=== PATIENT | female | born 1935 | race Caucasian/White ===

== ENCOUNTER 2017-12-31 11:26 | Observation (INO) | payer MEDICARE ==
[2017-12-27 14:49] VITALS: BP 125/52
[2017-12-27 15:02] LABS: BASOPHILS % (AUTO) 1.2 % (0.0-5.0); HEMATOCRIT 31.3 % (36-48); LYMPHOCYTES % (AUTO) 17.2 % (21.0-51.0); MEAN CORPUSCULAR HEMOGLOBIN 29.5 pg (27.0-33.0); MEAN CORPUSCULAR HGB CONC 33.3 g/dL (32.0-36.0); MEAN CORPUSCULAR VOLUME 88.6 fL (79-99); MONOCYTES % (AUTO) 8.6 % (3.0-13.0); PLATELET COUNT (AUTO) 240 K/uL (130-400); RED BLOOD CELL COUNT(AUTO) 3.54 MIL/uL (4.00-5.50); RED CELL DISTRIBUTION WIDTH 15.1 % (11.0-15.5); WHITE BLOOD COUNT (AUTO) 6.9 K/uL (4.8-10.8)
[2017-12-27 15:03] LABS: APPEARANCE,URINE Clear (CLEAR); BILIRUBIN,URINE Negative (NEGATIVE); COLOR,URINE Yellow (YELLOW); GLUCOSE, URINE (UA) Negative (NEGATIVE); KETONES,URINE Negative (NEGATIVE); LEUKOCYTE ESTERASE ,URINE Negative (NEGATIVE); NITRATE,URINE Negative (NEGATIVE); OCCULT BLOOD,URINE Negative (NEGATIVE); PROTEIN,URINE Negative (NEGATIVE)
[2017-12-27 15:10] LABS: CREATININE 1.6 mg/dL (0.5-1.5); POTASSIUM 4.8 mmol/L (3.5-5.1)
[2017-12-27 15:14] LABS: INR 2.21 (0.85-1.15); PARTIAL THROMBOPLASTIN TIME 35.5 SEC (26.3-35.5); PROTHROMBIN TIME 22.8 SEC (9.6-11.6)
[2017-12-31] VITALS (16 sets, daily range): BP systolic 116–173; BP diastolic 47–82
[~2017-12-31] VITALS: Ht 161.2 cm; Wt 67.5 kg
[~2017-12-31 11:26] MED LIST: AEC81 PO; AMIO200T2 PO; ATOR10TA69 PO; CALC-866 PO; CARV6.25 PO; CETI10TA57 PO; GARL1000 PO; LEVO50TA11 PO; LEVO75TA10 PO; LISI30TA4 PO; MAGN250T2 PO; SODIUM CHLORIDE 0.9% 1000ML 1,000 ML IV SCH; SODIUM CHLORIDE 0.9% 500ML 500 ML IV SCH; WARF1TAB83 PO; WARFARIN PO; [UNRECOGNIZED DRUG - OTHER] PO
[2017-12-31 12:14] LABS: CREATININE 1.4 mg/dL (0.5-1.5); POTASSIUM 4.7 mmol/L (3.5-5.1)
[2017-12-31 12:16] LABS: INR 1.26 (0.85-1.15); PARTIAL THROMBOPLASTIN TIME 27.9 SEC (26.3-35.5); PROTHROMBIN TIME 13.2 SEC (9.6-11.6)
[2017-12-31] MEDS ORDERED: LIDOCAINE HCL 2% 20ML ONE (13:44)
[2017-12-31] MEDS ORDERED: ISOVUE-300 100 ML VIAL IV ONE (13:44)
[2017-12-31] MEDS ORDERED: HEPARIN SODIUM 1000UNIT/ML 10ML VIAL ONE (13:44)
[2017-12-31] MEDS ORDERED: NITROGLYCERIN 5 MG/ML 10 ML VIAL IV ONE (13:44)
[2017-12-31] MEDS ORDERED: FENTANYL CITRATE PF 50 MCG/1 ML 2ML VIAL ONE (14:22)
[2017-12-31] MEDS ORDERED: MIDAZOLAM HCL 1 MG/ML 2ML VIAL ONE (14:22)
[2017-12-31] MEDS ORDERED: SODIUM CHLORIDE 0.9% 1000ML 1,000 ML IV SCH (15:05)
[2017-12-31] MEDS ORDERED: PROTAMINE SULFATE 10 MG/ML 25ML VIAL IV ONE (15:09)
[2017-12-31] MEDS ORDERED: ASPIRIN 81MG TAB.CHEW ONE (15:11)
[2017-12-31] MEDS ORDERED: CLOPIDOGREL BISULFATE 300 MG TAB ONE (15:11)
[2017-12-31] MEDS ORDERED: DEXTROSE 50%-WATER 50 ML DISP.SYRIN IV PRN (15:15)
[2017-12-31] MEDS ORDERED: GLUCAGON 1MG KIT 1 MG ML IM PRN (15:15)
[2017-12-31] MEDS ORDERED: HYDRALAZINE HCL 20 MG/ML VIAL IV PRN (15:15)
[2017-12-31] MEDS ORDERED: ACETAMINOPHEN-CODEINE 300/30MG TAB PO PRN ×2 (15:15)
[2017-12-31] MEDS ORDERED: CLONIDINE HCL 0.1 MG TABLET PO PRN (15:15)
[2017-12-31] MEDS ORDERED: ATROPINE SULFATE 0.1 MG/ML 10 ML SYG IVP ONE (16:29)
[2017-12-31] MEDS: CARVEDILOL 6.25 MG TABLET PO SCH (20:45)
[2017-12-31] MEDS ORDERED: CETIRIZINE HCL 5 MG TABLET PO SCH (21:00)
[2017-12-31] MEDS ORDERED: ATORVASTATIN CALCIUM 10 MG TABLET PO SCH (21:00)
[2017-12-31] MEDS ORDERED: MAGNESIUM 250 MG PO SCH (21:00)
[2017-12-31] MEDS ORDERED: LISINOPRIL 10 MG TABLET PO SCH (21:00)
[2018-01-01] VITALS: BP 132/55
[2018-01-01 03:52] LABS: HEMATOCRIT 29.9 % (36-48); MEAN CORPUSCULAR HEMOGLOBIN 30.1 pg (27.0-33.0); MEAN CORPUSCULAR HGB CONC 34.1 g/dL (32.0-36.0); MEAN CORPUSCULAR VOLUME 88.2 fL (79-99); PLATELET COUNT (AUTO) 225 K/uL (130-400); RED BLOOD CELL COUNT(AUTO) 3.38 MIL/uL (4.00-5.50); RED CELL DISTRIBUTION WIDTH 15.3 % (11.0-15.5); WHITE BLOOD COUNT (AUTO) 6.2 K/uL (4.8-10.8)
[2018-01-01 04:00] VITALS: BP 135/60
[2018-01-01 04:00] LABS: CREATININE 1.5 mg/dL (0.5-1.5); POTASSIUM 4.5 mmol/L (3.5-5.1)
[2018-01-01 08:00] VITALS: BP 121/78
[2018-01-01] MEDS ORDERED: CLOPIDOGREL BISULFATE 75 MG TAB PO SCH (09:00)
[2018-01-01] MEDS ORDERED: AMIODARONE HCL 200 MG TABLET PO SCH (09:00)
[2018-01-01] MEDS ORDERED: ASPIRIN 81 MG EC TAB PO SCH (09:00)
[2018-01-01] MEDS ORDERED: CLOP75TA32 PO (10:04)
[2018-01-01] MEDS: CARVEDILOL 6.25 MG TABLET PO SCH (10:21)
[2018-01-01 11:00] VITALS: BP 135/62
[2018-01-01] MEDS ORDERED: WARFARIN SODIUM 1 MG TAB PO SCH (16:00)
== END 2018-01-01 13:52 | disposition home or self-care (01) ==
LOC: DAH 11:26 → DAHIP 11:27 → 3AH 18:26
PROVIDERS: ADMIT Internal Medicine Cardiovascular Disease; ATTEND Internal Medicine Cardiovascular Disease
DX: I73.9 Peripheral vascular disease, unspecified (principal); I10 Essential (primary) hypertension; I87.2 Venous insufficiency (chronic) (peripheral); E78.5 Hyperlipidemia, unspecified; E03.9 Hypothyroidism, unspecified; I48.0 Paroxysmal atrial fibrillation; Z95.0 Presence of cardiac pacemaker; Z79.01 Long term (current) use of anticoagulants; Z79.82 Long term (current) use of aspirin; Z79.899 Other long term (current) drug therapy
CPT/HCPCS: 36415 ×3; 37224; 71045; 75630; 80048 ×3; 80061; 81003; 85025; 85027; 85347; 85610 ×2; 85730 ×2; 93005; 96374; A4606; C1725; C1769; C1893; C1894 ×2; G0378 ×26; J0360; J1644; J2250; J2720; J3010; J3490 ×2; Q9967; 99152; 99153; J0461

== ENCOUNTER 2018-12-17 06:29 | Day surgery (SDC) | payer MEDICARE ==
[2018-12-16 15:18] VITALS: BP 144/64
[2018-12-16 15:27] LABS: BASOPHILS % (AUTO) 1.3 % (0.0-5.0); EOSINOPHILS % (AUTO) 32.8 % (0.0-8.0); HEMATOCRIT 37.7 % (36-48); MEAN CORPUSCULAR HEMOGLOBIN 31.7 pg (27.0-33.0); MEAN CORPUSCULAR HGB CONC 32.6 g/dL (32.0-36.0); MEAN CORPUSCULAR VOLUME 97.2 fL (79-99); MONOCYTES % (AUTO) 7.7 % (3.0-13.0); NEUTROPHILS % (AUTO) 45.2 % (40.0-77.0); NUCLEATED RED BLOOD CELLS 0.1 % (0.0-0.19); PLATELET COUNT (AUTO) 194 K/uL (130-400); RED BLOOD CELL COUNT(AUTO) 3.88 MIL/uL (4.00-5.50); RED CELL DISTRIBUTION WIDTH 14.6 % (11.0-15.5); WHITE BLOOD COUNT (AUTO) 8.2 K/uL (4.8-10.8)
[2018-12-16 15:28] LABS: APPEARANCE,URINE Clear (CLEAR); BILIRUBIN,URINE Negative (NEGATIVE); COLOR,URINE Yellow (YELLOW); GLUCOSE, URINE (UA) Negative (NEGATIVE); KETONES,URINE Negative (NEGATIVE); LEUKOCYTE ESTERASE ,URINE Negative (NEGATIVE); NITRATE,URINE Negative (NEGATIVE); OCCULT BLOOD,URINE Negative (NEGATIVE); PROTEIN,URINE Negative (NEGATIVE)
[2018-12-16 15:35] LABS: CREATININE 1.5 mg/dL (0.5-1.5); POTASSIUM 4.3 mmol/L (3.5-5.1)
[2018-12-16 15:40] LABS: INR 1.51 (0.85-1.15); PARTIAL THROMBOPLASTIN TIME 30.4 SEC (26.3-35.5); PROTHROMBIN TIME 15.7 SEC (9.6-11.6)
[~2018-12-17] VITALS: Ht 162.6 cm; Wt 66.8 kg
[~2018-12-17 06:29] MED LIST changes: -AMIO200T2 PO; +AMIO200T5 PO; +BENA10TA10 PO; -CALC-866 PO; -CETI10TA57 PO; -GARL1000 PO; -LISI30TA4 PO; -MAGN250T2 PO; -SODIUM CHLORIDE 0.9% 1000ML 1,000 ML IV SCH; -SODIUM CHLORIDE 0.9% 500ML 500 ML IV SCH; -WARFARIN PO; -[UNRECOGNIZED DRUG - OTHER] PO
--- NOTE | 2018-12-17 10:50 | NUR ---
ABNORMAL LABS NOTIFIED TIMMY MERIDA OF PT'S BUN 28, CREAT 1.5, PT 15.7, INR 1.51. ORDERS TO GIVE NS 250 ML BOLUS X1 UPON ARRIVAL TO DAY PATIENT.
[2018-12-18] VITALS (11 sets, daily range): BP systolic 95–177; BP diastolic 34–77
[2018-12-18] MEDS ORDERED: SODIUM CHLORIDE 0.9% 500ML 500 ML IV SCH (05:00)
--- NOTE | 2018-12-18 07:10 | NUR ---
RECEIVED PT ,IN BED ,WITH NO COMPLAINTS ,SPOUSE AT BEDSIDE CALL CRAFT IN REACH
[2018-12-18] MEDS ORDERED: SODIUM CHLORIDE 0.9% 1000ML 1,000 ML IV ONE (07:41)
--- NOTE | 2018-12-18 07:52 | NUR ---
ITEM WITH Addendum: 12/18/18 at 0757 by SILVESTRE QUILES RN RN Amended: Links added.
[2018-12-18] MEDS ORDERED: HEPARIN SODIUM 1000UNIT/ML 10ML VIAL ONE (09:04)
[2018-12-18] MEDS ORDERED: LIDOCAINE HCL 2% 20ML ONE (09:05)
[2018-12-18] MEDS ORDERED: IODIXANOL 320 MG/ML 100 ML VIAL ONE (09:05)
--- NOTE | 2018-12-18 12:35 | NUR ---
PROCEDURE PT TAKEN TO PROCEDURE VIA BED BY PROTECTIVE SERVICES SOCIAL WORKER PERSONNEL Laura FRANKS RN AND BLADE SOLIS
[2018-12-18] MEDS ORDERED: FENTANYL CITRATE PF 50 MCG/1 ML 2ML VIAL ONE (12:43)
[2018-12-18] MEDS ORDERED: MIDAZOLAM HCL 1 MG/ML 2ML VIAL ONE (12:43)
[2018-12-18] MEDS ORDERED: NITROGLYCERIN 5 MG/ML 10 ML VIAL IV ONE (12:45)
[2018-12-18] MEDS ORDERED: DEXTROSE 50%-WATER 50 ML DISP.SYRIN IV PRN (14:15)
[2018-12-18] MEDS ORDERED: SODIUM CHLORIDE 0.9% 1000ML 1,000 ML IV SCH (14:15)
[2018-12-18] MEDS ORDERED: GLUCAGON 1MG KIT 1 MG ML IM PRN (14:15)
[2018-12-18] MEDS ORDERED: HYDRALAZINE HCL 20 MG/ML VIAL IV PRN (14:15)
[2018-12-18] MEDS ORDERED: CLOPIDOGREL BISULFATE 300 MG TAB ONE (14:19)
--- NOTE | 2018-12-18 14:44 | NUR ---
RECEIVED AWAKE ,PERCLOSE DRESSING INTACT ,NO HEMATOMA ,NO BLEEDING TO SITE ,STRONG BILATERAL PEDAL AND TIBIAL PULSES PRESENT,,B/P-95/34 97.3-60-15,O2 SAT 95%,INSTRUCTED PT AND SPOUSE ON KEEPING LT LEG STRAIGHT AND NOT LIFTING HER HEAD VERBALIZES UNDERSTANDING--CALL CRAFT IN REACH
--- NOTE | 2018-12-18 15:04 | NUR ---
CD CD OF CATH PROCEDURE GIVEN TO PER DR. ALVARES REQUEST.
--- NOTE | 2018-12-18 17:17 | NUR ---
AMBULATION PT AMBULATED TO RESTROOM WITHOUT DIFFICULTY. PT SITE TO LEFT GROIN SOFT TO TOUCH. NO BLEEDING, OOZING NOTED.
--- NOTE | 2018-12-18 18:30 | NUR ---
DISCHARGE ORAL AND WRITTEN DISCHARGE INSTRUCTIONS GIVEN TO PT AND PTS . PRESCRIPTION GIVEN TO . BOTH VERBALIZED UNDERSTANDING. NO OTHER QUESTIONS AT THIS TIME
[2018-12-19] MEDS ORDERED: CLOPIDOGREL BISULFATE 75 MG TAB PO SCH (09:00)
== END 2018-12-18 19:00 | disposition home or self-care (01) ==
LOC: DAH 06:29
PROVIDERS: ATTEND Internal Medicine Cardiovascular Disease
DX: I70.211 Atherosclerosis of native arteries of extremities with intermittent claudication, right leg (principal); I10 Essential (primary) hypertension; I87.2 Venous insufficiency (chronic) (peripheral); I48.0 Paroxysmal atrial fibrillation; E03.9 Hypothyroidism, unspecified; Z79.01 Long term (current) use of anticoagulants; Z79.899 Other long term (current) drug therapy
CPT/HCPCS: 36415; 37226; 71045; 75716; 80048; 81003; 85025; 85610; 85730; 93005; 99156; 99157; A4606; C1725; C1760; C1769 ×2; C1874; C1887; C1893; C1894 ×2; J1644 ×2; J2250; J3010; J3490 ×2; J7030; Q9967

== ENCOUNTER 2019-02-22 13:31 | Observation (INO) | payer MEDICARE ==
[~2019-02-22] VITALS: Ht 162.6 cm; Wt 63.8 kg
[2019-02-22 13:56] LABS: BASOPHILS % (AUTO) 1.1 % (0.0-5.0); EOSINOPHILS % (AUTO) 37.3 % (0.0-8.0); HEMATOCRIT 38.4 % (36-48); LYMPHOCYTES % (AUTO) 10.3 % (21.0-51.0); MEAN CORPUSCULAR HEMOGLOBIN 31.9 pg (27.0-33.0); MEAN CORPUSCULAR HGB CONC 33.2 g/dL (32.0-36.0); MEAN CORPUSCULAR VOLUME 96.1 fL (79-99); MONOCYTES % (AUTO) 7.2 % (3.0-13.0); NEUTROPHILS % (AUTO) 44.1 % (40.0-77.0); PLATELET COUNT (AUTO) 194 K/uL (130-400); RED CELL DISTRIBUTION WIDTH 14.5 % (11.0-15.5); WHITE BLOOD COUNT (AUTO) 8.2 K/uL (4.8-10.8)
[2019-02-22 14:08] LABS: INR 2.09 (0.85-1.15); PARTIAL THROMBOPLASTIN TIME 36.2 SEC (26.3-35.5); PROTHROMBIN TIME 21.6 SEC (9.6-11.6)
[2019-02-22 14:15] LABS: CREATININE 1.2 mg/dL (0.5-1.5); POTASSIUM 5.4 mmol/L (3.5-5.1)
[2019-02-22] MEDS ORDERED: ASPIRIN 81MG TAB.CHEW ONE (14:18)
[2019-02-22] MEDS ORDERED: NITROGLYCERIN 0.4 MG SL TAB SL ONE (14:18)
[2019-02-22 14:19] LABS: ALBUMIN 3.7 g/dL (3.5-5.0); BILIRUBIN,TOTAL 0.9 mg/dL (0.2-1.0); TOTAL PROTEIN, SERUM 7.3 g/dL (6.0-8.3)
[2019-02-22 15:13] LABS: EOSINOPHILS % (MANUAL) 28 % (1-6); LYMPHOCYTES % (MANUAL) 7 % (22-44); MAN.DIFF COMMENT-IMPRESSION MANUAL DIFFERENTIAL; MONOCYTES % (MANUAL) 7 % (2-9); REACTIVE LYMPHOCYTES 1 % (0-0); SEGMENTED NEUTROPHILS % 57 % (40-70)
--- NOTE | 2019-02-22 16:42 | NUR ---
DR GARZA CALLED INQUIRING ON PATIENT STATUS , HE SAID TO CALL HIM IF SHE STARTS HAVING CHEST PAIN AND HE WILL BE IN TO SEE HER TOMORROW
[2019-02-22 16:49] VITALS: BP 161/81
[2019-02-22] MEDS ORDERED: NITROGLYCERIN 1GM/1 INCH PACKET TD PRN (17:30)
[2019-02-22] MEDS ORDERED: CLOP75TA14 PO (17:57)
[2019-02-22 19:25] VITALS: BP 165/77
--- NOTE | 2019-02-22 20:00 | NUR ---
ASSESS SHIFT ASSESSMENT DONE, PLEASE REFER TO CHART. PT CLAIMS OF CHEST DISCOMFORT BUT NOT PAINS. V/S MONITORED BY PCP, NOTED TO HAVE ELEVATED BP AT 165/77. ASSURED PT TO CHECK ON MED AVAILABLE FOR HER. Addendum: 02/23/19 at 0121 by HAL HERNANDEZ RN RN Amended: Links added.
--- NOTE | 2019-02-22 20:23 | NUR ---
PAGED NO PRN MEDS ORDERED BY MD FOR BP NOR FOR PAINS. PAGED DR HARRIS VIA ANSWERING SERVICE. AWAITING CALL BACK.
--- NOTE | 2019-02-22 20:41 | NUR ---
RE-PAGED NO CALL BACK FROM DR HARRIS. RE-PAGED VIA ANSWERING SERVICE. AWAITING CALL BACK.
[2019-02-22 20:51] LABS: CREATINE KINASE, TOTAL 73 U/L (21-232); MYOGLOBIN 66 ng/mL (10-92); TROPONIN I < 0.04 ng/mL (0.00-0.06)
--- NOTE | 2019-02-22 21:00 | NUR ---
CALL STILL NO CALL BACK FROM DR HARRIS. [employer] CALLED MD'S CP NUMBER BUT MD HAD NOT ANSWERED CALL AND VOICE MAIL BOX IS FULL AND UNABLE TO LEAVE A MESSAGE. PAGED DR GARZA VIA ANSWERING SERVICE. CALLED BACK AND REFERRED PT'S CONDITION WELL EKG AND CARDIA ENZYME RESULTS. NEW MED ORDERS GIVEN. WILL MEDICATE PT. RESOURCE NURSE MADE AWARE OF DR HARRIS NOT ANSWERING PAGE NOR CALL.
[2019-02-22] MEDS ORDERED: ACETAMINOPHEN 325 MG TAB PO PRN (21:15)
[2019-02-22] MEDS ORDERED: METOPROLOL TARTRATE 50 MG TAB PO ONE (21:15)
[2019-02-22] MEDS ORDERED: NITROGLYCERIN 0.4 MG SL TAB SL PRN (21:15)
[2019-02-22] MEDS ORDERED: ACETAMINOPHEN 325 MG TAB ONE (21:30)
[2019-02-22] MEDS ORDERED: METOPROLOL TARTRATE 50 MG TAB ONE (21:30)
[2019-02-22 23:15] VITALS: BP 173/77
--- NOTE | 2019-02-22 23:28 | NUR ---
MEDS PT CLAIMS THAT CHEST DISCOMFORT IS STILL FELT. V/S MONITORED BY PCP WITH UK=[id number], HR=60. NITROL PATCH APPLIED TO ACW. KEPT RESTED AND COMFORTABLE. WILL RE-ASSESS PT.
[2019-02-23 00:05] VITALS: BP 179/81
--- NOTE | 2019-02-23 02:00 | NUR ---
RE-ASSESS RE-CHECKED SU=[id number], HR=99. NO CONCERNS VERBALIZED. PCP DID THE EKG AT THIS TIME. RESULTS PLACED IN CHART.
[2019-02-23 02:13] LABS: HEMATOCRIT 34.4 % (36-48); MEAN CORPUSCULAR HEMOGLOBIN 32.5 pg (27.0-33.0); MEAN CORPUSCULAR HGB CONC 33.9 g/dL (32.0-36.0); MEAN CORPUSCULAR VOLUME 95.7 fL (79-99); PLATELET COUNT (AUTO) 167 K/uL (130-400); RED CELL DISTRIBUTION WIDTH 14.2 % (11.0-15.5); WHITE BLOOD COUNT (AUTO) 7.6 K/uL (4.8-10.8)
[2019-02-23 02:31] LABS: CARBON DIOXIDE 27 mmol/L (21-32); CHLORIDE 103 mmol/L (101-111); CREATINE KINASE, TOTAL 63 U/L (21-232); CREATININE 1.3 mg/dL (0.5-1.5); GLOMERULAR FILTR. RATE CALC 42 mL/min (>60); GLUCOSE,RANDOM 97 mg/dL (70-105); MYOGLOBIN 69 ng/mL (10-92); POTASSIUM 4.5 mmol/L (3.5-5.1); SODIUM SERUM 137 mmol/L (136-145); TROPONIN I < 0.04 ng/mL (0.00-0.06); UREA NITROGEN, BLOOD 23 mg/dL (7-18)
[2019-02-23 03:20] VITALS: BP 142/57
--- NOTE | 2019-02-23 06:45 | NUR ---
REPORT ENDORSED PT TO AM NURSE MORALES. FOR MORE CARE AND MANAGEMENT. PENDING DR HARRIS TO RETURN PAGED AND CALLS FROM LAST NIGHT AND TO RECONCILE HOME MEDS.
[2019-02-23 07:51] VITALS: BP 180/77
[2019-02-23 08:26] LABS: CREATINE KINASE, TOTAL 68 U/L (21-232); MYOGLOBIN 84 ng/mL (10-92); TROPONIN I < 0.04 ng/mL (0.00-0.06)
[2019-02-23] MEDS ORDERED: METOPROLOL TARTRATE 50 MG TAB PO SCH (09:00)
[2019-02-23] MEDS ORDERED: ASPIRIN 325 MG TABLET PO SCH (09:00)
--- NOTE | 2019-02-23 10:00 | NUR ---
CM NOTE SPOKE TO DR. GARZA RE: PRELIM REPORT OF EKGS. NO AV PACED BEATS? STATED IT WAS A DRAFT AND NOT ACCURATE, NOTHING WRONG W PACEMAKER. PT BEING DISCHARGED TODAY PER DR. GARZA. NO TTRIGGFERS TO CM, NO CONCENRS VOICED TO PRIMARY RN, COMPLETE ia DEFERRED
--- NOTE | 2019-02-23 10:33 | NUR ---
DR GARZA IN TO SEE PATIENT MAY STOP q6 CARDICA LABS AND EKG'S
--- NOTE | 2019-02-23 10:35 | NUR ---
PER DR GARZA PATIENT MAY BE DISCHARGE FOLLOW-UP WITH DR TIWARI AT NEXT AVAILABLE APPOINTMENT
--- NOTE | 2019-02-23 11:00 | NUR ---
TRIED CALLING DR HARRIS BUT NO ANSWER AND VOICE MAIL FULL
[2019-02-23 12:00] VITALS: BP 187/77
--- NOTE | 2019-02-23 15:30 | NUR ---
DR HARRIS PAGED BY [employer] CONTACTED ANSWERING SERVICE WHO WILL PAGE PHYSICIAN
[2019-02-23 16:00] VITALS: BP 181/89
--- NOTE | 2019-02-23 17:00 | NUR ---
HS CALLED DR HARRIS CELL PHONE NO ANSWER GOT VOICE MESSAGE WAS FULL AND UNABLE TO LEAVE MESSAGE WILL CONTINUE TO TRY TO REACH PHYSICIAN
--- NOTE | 2019-02-23 17:05 | NUR ---
UNABLE TO REACH MD RECEIVED A CALL FROM 3RD FLOOR AA STATING THE PATIENT'S NURSE AND HER HAD BEEN TRYING TO GET HOLD OF THE DR. HARRIS FOR DISCHARGE ORDERS SINCE THIS AM. DR. HARRIS HAS NOT RETURNED CALLS EVEN THOUGH THEY WENT THROUGH THE ANSWERING SERVICE. I TRIED TO CALL STEVEN BARNARD @ [phone] HIS CELL PHONE, NO ANSWER AND THE VOICE MAIL IS FULL. CALLED ER TO SEE IF THEY HAVE A DIFFERENT PHONE NO FOR HIM BUT THE NUMBER WAS THE SAME. INSTRUCTED AA TO CONTINUE CALLING THE ANSWERING SERVICE AND ALSO THE CELL PHONE AND UPDATE ME IF THEY GET HOLD OF HIM OR NOT. PER NURSE THE PATIENT AND FAMILY ARE GETTING ANXIOUS AND WANT TO GO HOME.
--- NOTE | 2019-02-23 17:15 | NUR ---
STANISLAV FROM ANSWERING SERVICE CALLED UNIT SHE HAS TRIED TO REACH HIM PAGED 3 TIMES WITH NOT RETURN CALL
--- NOTE | 2019-02-23 17:19 | NUR ---
PATIENT TO DESK SEVERAL TIMES AND INFORM WE ARE TRYING TO REACH DR HARRIS FOR DISCHARGE ORDERS BUT HAVE BEEN UNABLE TO REACH.
--- NOTE | 2019-02-23 18:00 | NUR ---
CALLED DR HARRIS CELL PHONE WITH NO ANSWER AND GOT VOICE MAIL WAS FULL NO MESSAGE CAN BE LEFT
--- NOTE | 2019-02-23 18:29 | NUR ---
DISCHARGE UNABLE TO GET HOLD OF DR. HARRIS, PATIENT HAS BEEN CLEARED BY CARDIOLOGY, PLACED A CALL TO [facility] AND INSTRUCTED TO CALL DR. FERNANDES CHIEF OF MEDICINE. SPOKE WITH DR. FERNANDES, RECEIVED ORDERS TO DISCHARGED PATIENT AND FOLLOW UP WITH CARDIOLOGY AND PRIMARY MD. SEE ORDERS WRITTEN, PRIMARY NURSE AND CHARGE NURSE INFORMED.
--- NOTE | 2019-02-23 18:50 | NUR ---
PATIENT GIVEN DISCHARGE INSTRUCTIONS AND VERBALIZED UNDERSTANDING . IV REMOVED WITH CATHETER INTACT AND PRESSURE HELD ON SITE TILL BLEEDING STOPPED THEN SITE COVERED WITH BIND-AID, TELEMETRY MONITORING UNIT NOTIFIED OF PATIENT'S DISCHARGE STATUS AND TELEMETRY UNIT D/C. PATIENT INSTRUCTED BY DR GARZA TO CONTINUE ALL HOME MEDICATIONS AND TO FOLLOW-UP WITH DR TIWARI AT HIS NEXT AVAILABLE APPOINTMENT. PATIENT GIVEN PRINTED PATIENT SUMMARY OF THIS VISIT TO TAKE TO HER FOLLOW-UP APPOINTMENT. NO QUESTIONS OR CONCERNS AT THIS TIME PATIENT WALKED DOWN TO LOBBY WITH PCT AND AT SIDE AND LEFT IN CAR FOR HOME.
== END 2019-02-23 18:55 | disposition home or self-care (01) ==
LOC: EDH 13:31 → EDHIP 14:57 → 3CH 16:23
PROVIDERS: ADMIT Family Medicine; ATTEND Family Medicine
DX: R07.89 Other chest pain (principal); E11.51 Type 2 diabetes mellitus with diabetic peripheral angiopathy without gangrene; E78.5 Hyperlipidemia, unspecified; I48.91 Unspecified atrial fibrillation; Z83.3 Family history of diabetes mellitus; Z82.49 Family history of ischemic heart disease and other diseases of the circulatory system; Z79.899 Other long term (current) drug therapy
CPT/HCPCS: 36415 ×2; 71045; 80048; 80053; 82550 ×3; 83874 ×3; 84484 ×4; 85025; 85027; 85610; 85730; 93005 ×4; 99284; G0378 ×28

== ENCOUNTER → 2019-09-22 | Outpatient (CLI) | payer MEDICARE ==
[~2019-09-22] MED LIST changes: -AEC81 PO; -BENA10TA10 PO; +BENA10TA12 PO; +CLOP75TA14 PO
== END | disposition home or self-care (01) ==
LOC: SHCH 07:30
PROVIDERS: ATTEND Internal Medicine Cardiovascular Disease
DX: I70.203 Unspecified atherosclerosis of native arteries of extremities, bilateral legs (principal); I87.2 Venous insufficiency (chronic) (peripheral)
CPT/HCPCS: 93925; 93970

== ENCOUNTER 2019-10-13 07:50 | Day surgery (SDC) | payer MEDICARE ==
[2019-10-10 10:50] VITALS: BP 136/65
[2019-10-10 11:27] LABS: APPEARANCE,URINE Clear (CLEAR); BILIRUBIN,URINE Negative (NEGATIVE); COLOR,URINE Yellow (YELLOW); GLUCOSE, URINE (UA) Negative (NEGATIVE); KETONES,URINE Negative (NEGATIVE); LEUKOCYTE ESTERASE ,URINE Trace (NEGATIVE); NITRATE,URINE Negative (NEGATIVE); OCCULT BLOOD,URINE Negative (NEGATIVE); PROTEIN,URINE Negative (NEGATIVE)
[2019-10-10 11:33] LABS: BASOPHILS % (AUTO) 1.4 % (0.0-5.0); EOSINOPHILS % (AUTO) 22.5 % (0.0-8.0); HEMATOCRIT 36.7 % (36-48); LYMPHOCYTES % (AUTO) 10.4 % (21.0-51.0); MEAN CORPUSCULAR HEMOGLOBIN 33.5 pg (27.0-33.0); MEAN CORPUSCULAR HGB CONC 33.9 g/dL (32.0-36.0); MEAN CORPUSCULAR VOLUME 98.7 fL (79-99); MONOCYTES % (AUTO) 9.3 % (3.0-13.0); NEUTROPHILS % (AUTO) 56.4 % (40.0-77.0); NUCLEATED RED BLOOD CELLS 0.1 % (0.0-0.19); PLATELET COUNT (AUTO) 177 K/uL (130-400); RED BLOOD CELL COUNT(AUTO) 3.72 MIL/uL (4.00-5.50); RED CELL DISTRIBUTION WIDTH 14.1 % (11.0-15.5); WHITE BLOOD COUNT (AUTO) 6.8 K/uL (4.8-10.8)
[2019-10-10 11:35] LABS: CREATININE 1.2 mg/dL (0.5-1.5); POTASSIUM 4.5 mmol/L (3.5-5.1)
[2019-10-10 12:01] LABS: BACTERIA,URINE Few /HPF (None Seen); RBC,URINE 0-1 /HPF (0-1); WBC,URINE 0-1 /HPF (0-1)
[2019-10-10 12:03] LABS: INR 2.4 (0.85-1.15); PARTIAL THROMBOPLASTIN TIME 33.9 SEC (26.3-35.5); PROTHROMBIN TIME 24.4 SEC (9.6-11.6)
--- NOTE | 2019-10-10 15:01 | NUR ---
RE: ABNORMAL LABS INFORMED TIMMY MENA REGARDING PT 24.4. INR 2.40 AND PTT 33.9 AND THAT PATIENT IS TAKING WARFARIN AND THAT PATIENT WAS INSTRUCTED TO STOP WARFARIN 10/08/19 AT 1900. PER MARY, OK TO PROCEED WITH PROCEDURE AND REDRAW PT/INR IN MORNING OF PROCEDURE.
[2019-10-13] VITALS (10 sets, daily range): BP systolic 128–180; BP diastolic 43–75
[~2019-10-13] VITALS: Ht 162.6 cm; Wt 63.5 kg
[~2019-10-13 07:50] MED LIST changes: +CETI10TA57 PO; +GARL1TAB2 PO; +MAGN250T10 PO; +SODIUM CHLORIDE 0.9% 1000ML 1,000 ML IV SCH; +SODIUM CHLORIDE 0.9% 500ML 500 ML IV SCH; +VIT-12 PO; +VITAMIN D PO
--- NOTE | 2019-10-13 08:15 | NUR ---
PRE-PROCEDURE RECEIVED TO DAY 7 VIA AMBULATING FOR SCHEDULED ABDOMINAL AORTOGRAM W/ BLE RUNOFF. AWAKE IN NO ACUTE DISTRESS. DENIES PAIN. CONNECTED TO CONTINUOUS CARDIOPULMONARY MONITORING. SIDE RAILS UP X2, BED IN LOWEST POSITION, AND CALL LIGHT W/IN REACH.
[2019-10-13] MEDS ORDERED: WARF1TAB83 PO (09:33)
[2019-10-13 10:16] LABS: INR 1.58 (0.85-1.15); PROTHROMBIN TIME 16.3 SEC (9.6-11.6)
--- NOTE | 2019-10-13 10:30 | NUR ---
PROCEDURE TRANSFERRED TO RELIGIOUS EDUCATION DIRECTOR VIA BED FOR ABD. AORTOGRAM W/ BLE RUNOFF BY JOHAN CABRERA RN. AWAKE IN NO ACUTE DISTRESS.
[2019-10-13] MEDS ORDERED: IODIXANOL 320 MG/ML 100 ML VIAL ONE (10:38)
[2019-10-13] MEDS ORDERED: HEPARIN SODIUM 1000UNIT/ML 10ML VIAL ONE (10:38)
[2019-10-13] MEDS ORDERED: NITROGLYCERIN 5 MG/ML 10 ML VIAL IV ONE (10:38)
[2019-10-13] MEDS ORDERED: LIDOCAINE HCL 2% 20ML ONE (10:39)
[2019-10-13] MEDS ORDERED: MIDAZOLAM HCL 1 MG/ML 2ML VIAL ONE (10:39)
[2019-10-13] MEDS ORDERED: FENTANYL CITRATE PF 50 MCG/1 ML 2ML VIAL ONE (10:39)
[2019-10-13] MEDS ORDERED: SODIUM CHLORIDE 0.9% 1000ML 1,000 ML IV SCH (11:36)
[2019-10-13] MEDS ORDERED: HYDRALAZINE HCL 20 MG/ML VIAL IV PRN (11:45)
[2019-10-13] MEDS ORDERED: GLUCAGON 1MG KIT 1 MG ML IM PRN (11:45)
[2019-10-13] MEDS ORDERED: DEXTROSE 50%-WATER 50 ML DISP.SYRIN IV PRN (11:45)
--- NOTE | 2019-10-13 11:45 | NUR ---
ASSESSMENT RECEIVED PT FROM [employer] ADMINISTRATOR STAFF BLADE DE JESUS. PT LYING IN BED. INSTRUCTED ON IMPORTANCE OF LYING FLAT AND NOT MOVING LEFT LEG OR LIFT HEAD UP OFF OF BED. BOTH PT AND PTS VERBALIZED UNDERSTANDING. SITE TO LEFT GROIN SOFT TO TOUCH. NO BLEEDING OR OOZING NOTED TO SITE.
--- NOTE | 2019-10-13 12:00 | NUR ---
REPORT ASSUMED CARE OF PT. AWAKE IN NO ACUTE DISTRESS. DENIES PAIN. CATH SITE TO LEFT GROIN WITH MYNX CLEAN, DRY, AND INTACT;SITE SOFT, NON-TENDER. LEFT DORSALIS PEDIS PULSE STRONG AND PALPABLE. SIDE RAILS UP X2, BED IN LOWEST POSITION, AND CALL LIGHT W/IN REACH. SYSTOLIC B/P 160'S, BUT PER PT B/P RUNS IN 150'S. WILL CONTINUE TO MONITOR.
--- NOTE | 2019-10-13 12:00 | NUR ---
REPORT REPORT GIVEN TO BLADE CAMEJO. PT LYING IN BED. SITE TO LEFT GROIN SOFT TO TOUCH. TRAY ORDERED
--- NOTE | 2019-10-13 13:00 | NUR ---
DIET ATE 100% OF LUNCH/
--- NOTE | 2019-10-13 13:30 | NUR ---
ACTIVITY HOB ELEVATED TO 20 DEGREES. CATH SITE W/O SIGNS OF BLEEDING. MYNX DRESSING TO LEFT GROIN CLEAN, DRY, AND INTACT; SITE SOFT, NON-TENDER.
--- NOTE | 2019-10-13 13:45 | NUR ---
ACTIVITY UP TO EDGE OF BED. DENIES DIZZINESS. ASSISTED TO RR. GAIT STEADY. CATH SITE W/O SIGNS OF BLEEDING;DRESSING CLEAN, DRY, AND INTACT; SITE SOFT, NON-TENDER.
--- NOTE | 2019-10-13 15:10 | NUR ---
REPORT RECEIVED REPORT FROM BLADE CAMEJO. PT DOING WELL. PT LYING IN BED. BEDREST IS UP. PT HAS AMBULATED YTO RESTROOM. WITH OUT DIFFICULTY. SITE TO LEFT GROIN SOFT TO TOUCH. NO BLEEDING, OOZING NOTED TO SITE.
--- NOTE | 2019-10-13 16:15 | NUR ---
EVALUATION DR. ALVARES HERE. SPEAKING TO PT IN REGARDS TO FINDINGS.
--- NOTE | 2019-10-13 16:30 | NUR ---
DISCHARGE ORAL AND WRITTEN DISCHARGE INSTRUCTIONS WERE GIVEN TO PT AND PTS IN REGARDS TO APPT AND RESUMING COUMADIN TONIGHT PER TIMMY MERIDA. BOTH VERBALIZED UNDERSTANDING.
--- NOTE | 2019-10-13 16:45 | NUR ---
CONSULT DR. FREDO FRENCH IN REGARDS TO PT REQUIRING AN EVALUTAION APPT BEFORE SEEING DR. ALVARES POST ON 10/22. VERBALIZED UNDERSTANDING. SHE WILL CALL PT TO SCHEDULE APPT FOR NEXT WEEK.
== END 2019-10-13 17:00 | disposition home or self-care (01) ==
LOC: DAH 07:50
PROVIDERS: ATTEND Internal Medicine Cardiovascular Disease
DX: I71.4 Abdominal aortic aneurysm, without rupture (principal); I70.212 Atherosclerosis of native arteries of extremities with intermittent claudication, left leg; E03.9 Hypothyroidism, unspecified; I48.0 Paroxysmal atrial fibrillation; I10 Essential (primary) hypertension; Z88.8 Allergy status to other drugs, medicaments and biological substances; Z88.1 Allergy status to other antibiotic agents; Z88.2 Allergy status to sulfonamides; Z79.899 Other long term (current) drug therapy; Z79.01 Long term (current) use of anticoagulants; Z95.0 Presence of cardiac pacemaker; Z87.01 Personal history of pneumonia (recurrent); Z87.891 Personal history of nicotine dependence; Z83.3 Family history of diabetes mellitus; Z82.3 Family history of stroke; Z82.49 Family history of ischemic heart disease and other diseases of the circulatory system
CPT/HCPCS: 36200; 36415 ×2; 71045; 75630; 80048; 81001; 85025; 85610 ×2; 85730; 93005; A4215; A4216; A4221; A4222; A4223 ×3; A4606; A4663; C1760; C1769; C1894 ×2; J1644; J2250; J3010; J3490 ×2; J7030; Q9967; 99156; 99157